=== PATIENT | male | born 1985 | race African-American/Black ===

== ENCOUNTER 2021-08-31 01:42 | Emergency (ER) | payer SELFPAY ==
[~2021-08-31] VITALS: Ht 175.3 cm; Wt 96.0 kg
[2021-08-31 02:04] VITALS: BP 164/84
[2021-08-31] MEDS ORDERED: SODIUM CHLORIDE 0.9% 1,000 ML IV ONE (02:15)
== END 2021-08-31 03:08 | disposition left against medical advice (07) ==
LOC: ER 01:54 → EDBD 01:54 → ER 03:08
DX: T40.711A Poisoning by cannabis, accidental (unintentional), initial encounter (principal); Y92.89 Other specified places as the place of occurrence of the external cause; R41.82 Altered mental status, unspecified
CPT/HCPCS: 93005; 99283; J7030